=== PATIENT | male | born 2000 | race Caucasian/White ===

== ENCOUNTER 2021-06-17 05:58 | Observation (INO) ==
[2021-06-17 07:11] LABS: Basophils # 0.1 K/mcL (0.0-0.2); Basophils % 0.6 %; Eosinophils # 0.1 K/mcL (0.0-0.6); Eosinophils % 1.2 %; Immature Granulocytes % 0.6 % (0-4); Lymphocytes % 24.5 %; Mean Corpuscular HGB Conc 34.9 g/dL (31.6-35.5); Mean Corpuscular Volume 80.4 fL (83.0-100.0); Monocytes # 0.7 K/mcL (0.0-1.3); Monocytes % 8.5 %; Neutrophils # 5.2 K/mcL (1.6-8.9); Platelet Count 185 K/mcL (140-400); Red Blood Count 5.35 M/mcL (4.19-5.50); Red Cell Distribution Width 12.8 % (11.5-14.5); Segmented Neutrophils % 64.6 %; White Blood Count 8.1 K/mcL (4.3-11.1)
[2021-06-17 07:52] LABS: BUN/Creatinine Ratio 22 (6-26); Blood Urea Nitrogen 23 mg/dL (6-20); Calcium 9.4 mg/dL (8.6-10.3); Carbon Dioxide 26 mEq/L (23-29); Chloride 102 mEq/L (98-107); Glucose 98 mg/dL (70-105); Osmolality,Calculated 288 (280-300); Potassium 3.5 mEq/L (3.5-5.1); Sodium 137 mEq/L (136-145); Troponin I < 0.03 ng/mL (< 0.04); eGFR For African Americans > 60 (> 60); eGFR For Non-African Americans > 60 (> 60)
[2021-06-17] MEDS ORDERED: Perflutren Lipid Microsphere 1.3 ML in 0.9 % Sodium Chloride 8.7 ML IVP PRN (08:48)
[2021-06-17] MEDS ORDERED: Ibuprofen 600 MG TABLET PO ONE (10:08)
[2021-06-17] MEDS ORDERED: Aspirin 325 MG TABLET PO ONE (10:41)
[2021-06-17 12:07] LABS: Chol/HDL Ratio 3.3 (0-4.9); Cholesterol 128 mg/dL (< 200); HDL Cholesterol 39 mg/dL (40-59); LDL Cholesterol,Calculated 55 mg/dL (< 100); Triglycerides 168 mg/dL (< 150)
[2021-06-17 13:46] VITALS: BP 144/72; PULSE 99; TEMP 97.8; O2SAT 95
[2021-06-17 14:35] LABS: Estimated Average Glucose 94 mg/dl; Hemoglobin A1C 4.9 %
[2021-06-17] MEDS ORDERED: Naloxone 0.4 MG/ML INJ IVP PRN (15:47)
[2021-06-17] MEDS ORDERED: Ondansetron ODT 4 MG TAB.RAPDIS SL PRN (15:47)
== END 2021-06-17 16:38 | disposition home or self-care (01) ==
LOC: 3BNU 05:58 → EMEROOARM 05:58 → SUATTDRO 11:47 → 3BNU 12:51
PROVIDERS: ADMIT Family Medicine; ATTEND Registered Nurse